=== PATIENT | male | born 1955 | race Caucasian/White ===

== ENCOUNTER 2018-07-31 09:12 | Inpatient (IN) | payer BC ==
[~2018-07-31] VITALS: Ht 175.3 cm; Wt 81.7 kg
[~2018-07-31 09:12] MED LIST: ASPI500 PO; CEPH500 PO; Percocet 5-3251 EACH PO; UNKNOWN BP MED
[2018-07-31] MEDS ORDERED: PRAZ2 PO (09:33)
[2018-07-31] MEDS ORDERED: FURO40 PO (09:33)
[2018-07-31] MEDS ORDERED: LISI20 PO ×2 (09:33→18:52)
[2018-07-31] MEDS ORDERED: AMLO10 PO (09:33)
[2018-07-31] MEDS ORDERED: BAYER BACK & B1 EACH PO (09:34)
[2018-07-31] MEDS ORDERED: ATOR40TA PO ×2 (09:34→18:51)
[2018-07-31] MEDS ORDERED: OMEPRAZOLE MAGN20 MG PO (09:34)
[2018-07-31] MEDS ORDERED: METO50ER PO (09:34)
[2018-07-31 10:27] LABS: BASOPHILS ABSOLUTE AUTO 0.05 K/mm3 (0.00-0.23); BASOPHILS PERCENT AUTO 1 % (0-2); EOSINOPHILS ABSOLUTE AUTO 0.12 K/mm3 (0.00-0.68); EOSINOPHILS PERCENT AUTO 1 % (0-6); Hematocrit 48.4 % (37.0-53.0); Hemoglobin 15.8 g/dL (13.5-17.5); IMMATURE GRAN ABSOLUTE AUTO 0.04 K/mm3 (0.00-0.10); IMMATURE GRAN PERCENT AUTO 0 % (0-1); LYMPHOCYTES ABSOLUTE AUTO 1.84 K/mm3 (0.84-5.20); LYMPHOCYTES PERCENT AUTO 20 % (21-46); MONOCYTES ABSOLUTE AUTO 0.69 K/mm3 (0.16-1.47); MONOCYTES PERCENT AUTO 7 % (4-13); Mean Corpuscular HGB 30.3 pg (26.0-34.0); Mean Corpuscular HGB Conc 32.6 g/dL (31.5-36.5); Mean Corpuscular Volume 93 fL (80-100); NEUTROPHILS ABSOLUTE AUTO 6.54 K/mm3 (1.96-9.15); NEUTROPHILS PERCENT AUTO 71 % (41-73); Platelet Count 225 K/mm3 (150-400); RDW Coefficient Variation 13.8 % (11.7-14.2); RDW Standard Deviation 47.1 fL (35.1-46.3); Red Blood Cell Count 5.21 M/mm3 (4.30-5.90); White Blood Cell Count 9.28 K/mm3 (4.00-11.30)
[2018-07-31 10:53] LABS: Alanine Aminotransfer (ALT/SGP 33 U/L (12-78); Albumin, Blood 3.5 g/dL (3.4-5.0); Albumin/Globulin Ratio 1.1 (0.8-1.8); Alk Phos 108 U/L (50-136); Anion Gap 7 mmol/L (6-16); Aspartate Aminotrans (AST/SGOT 42 U/L (12-37); Blood Urea Nitrogen 18 mg/dL (8-24); Bun/Creatinine Ratio 16.2 (12.0-20.0); CO2, Blood 27 mmol/L (21-32); Calcium, Blood 8.6 mg/dL (8.5-10.1); Chloride, Blood 108 mmol/L (98-108); Creatinine, Blood 1.11 mg/dL (0.60-1.20); Globulin, Blood 3.3 g/dL (2.2-4.0); Glomerular Filtration Rate >60 (60-); Glucose, Blood 79 mg/dL (70-99); Potassium, Blood 3.6 mmol/L (3.5-5.5); Sodium, Blood 142 mmol/L (136-145); Total Protein, Blood 6.8 g/dL (6.4-8.2)
[2018-07-31 11:00] LABS: Troponin I 0.036 ng/mL (0.000-0.040)
[2018-07-31 11:54] LABS: Source, Urine Clean Catch
[2018-07-31 11:58] LABS: Bilirubin, Urine Neg (Neg); Blood, Urine Neg (Neg); Glucose Qualitative, Urine Neg (Neg); Ketones, Urine 1+ (Neg); Leukocyte Esterase, Urine Neg (Neg); Nitrite, Urine Neg (Neg); Protein, Urine 2+ (Neg); Specific Gravity, Urine 1.025 (1.003-1.022); Urobilinogen, Urine 1+ (Normal)
[2018-07-31 12:13] LABS: Appearance, Urine Clear (Clear); Color, Urine Yellow (P-Yellow)
[2018-07-31 12:15] LABS: Bacteria Few /hpf; Mucus Light (0-Heavy); Red Blood Cells, Urine 0-2 /hpf (0-2); Squamous Epithelial Cells Rare /hpf (Few); White Blood Cells, Urine 0-2 /hpf (0-5)
[2018-07-31 17:41] LABS: International Normalized Ratio 1.03; Prothrombin Time Results 10.9 Sec (9.7-11.5)
[2018-07-31] MEDS ORDERED: METO50 PO (18:52)
[2018-07-31] MEDS ORDERED: Furosemide40 MG PO (18:53)
[2018-07-31] MEDS ORDERED: PRAZ5 PO (18:55)
[2018-07-31 19:57] LABS: U Amphetamine Screen Not Detected; U Barbituate Screen Not Detected; U Benzodiazapine Screen Not Detected; U Buprenorphine Screen Not Detected; U Cannabinoids Screen DETECTED; U Cocaine Screen Not Detected; U Methadone Screen Not Detected; U Methamphetamine Screen Not Detected; U Opiates Screen Not Detected; U Oxycodone Screen Not Detected; U Phencyclidine Screen Not Detected; U Propoxyphene Screen Not Detected
[2018-08-01 06:08] LABS: Hematocrit 46.7 % (37.0-53.0); Hemoglobin 15.1 g/dL (13.5-17.5); Mean Corpuscular HGB 30.6 pg (26.0-34.0); Mean Corpuscular HGB Conc 32.3 g/dL (31.5-36.5); Mean Corpuscular Volume 95 fL (80-100); Mean Platelet Volume 9.8 fL (9.1-12.4); Platelet Count 229 K/mm3 (150-400); RDW Standard Deviation 48.8 fL (35.1-46.3); Red Blood Cell Count 4.93 M/mm3 (4.30-5.90); White Blood Cell Count 8.86 K/mm3 (4.00-11.30)
--- NOTE | 2018-08-01 07:29 | NUR ---
ADMIT NOTE- CALLED ED AND RECIEVED REPORT FROM NIGHT RN. PT HAS HTN, PER REPORT THIS IS PERMISSIVE HTN UP TO SBP 220. AWAITING PT ARRIVAL ON THE FLOOR FOR FURTHER ASESSMENT.
[2018-08-01 13:06] LABS: Adenovirus Not Detected (NOT DETECT); Bordetella pertussis Not Detected (NOT DETECT); Chlamydophila pneumoniae Not Detected (NOT DETECT); Coronavirus 229E Not Detected (NOT DETECT); Coronavirus HKU1 Not Detected (NOT DETECT); Coronavirus NL63 Not Detected (NOT DETECT); Coronavirus OC43 Not Detected (NOT DETECT); Human Metapneumovirus Not Detected (NOT DETECT); Human Rhinovirus/Enterovirus Not Detected (NOT DETECT); Influenza A Not Detected (NOT DETECT); Influenza A/2009-H1 Not Detected (NOT DETECT); Influenza A/H1 Not Detected (NOT DETECT); Influenza A/H3 Not Detected (NOT DETECT); Influenza B Not Detected (NOT DETECT); Mycoplasma pneumoniae Not Detected (NOT DETECT); Parainfluenza Virus 1 Not Detected (NOT DETECT); Parainfluenza Virus 2 Not Detected (NOT DETECT); Parainfluenza Virus 3 Not Detected (NOT DETECT); Parainfluenza Virus 4 Not Detected (NOT DETECT); Respiratory Syncytial Virus Not Detected (NOT DETECT)
--- NOTE | 2018-08-01 20:12 | NUR ---
SHIFT SUMMARY- PT ADMITTED THROUGH THE ED. NO C/O PAIN T/O THE SHIFT, PT CONFUSED FROM TIME TO TIME. BEDSIDE REPORT COMPLETE WITH NIGHT RN VALERIE, PT SLEPT THROUGH REPORT. PT HOME CPAP IS IN THE BAG BESIDE HIS BED, CALLED DAY SHIFT RT, CPAP NOT SET UP YET. CALLED NIGHT RT TO COME SET IT UP.
--- NOTE | 2018-08-02 04:56 | NUR ---
SHIFT SUMMARY PT SLEPT FAIR, CPAP AND BI-OX ON T/O NIGHT. PT C/O HEAD THROBBING THIS AM, PAIN MEDICATION GIVEN AND PT RESTING. NO ACUTE CHANGES NOTED DURING THE NIGHT, WILL CONTINUE TO MONITOR.
[2018-08-02 05:03] LABS: BASOPHILS ABSOLUTE AUTO 0.04 K/mm3 (0.00-0.23); BASOPHILS PERCENT AUTO 0 % (0-2); EOSINOPHILS ABSOLUTE AUTO 0.15 K/mm3 (0.00-0.68); EOSINOPHILS PERCENT AUTO 2 % (0-6); Hematocrit 49.4 % (37.0-53.0); Hemoglobin 15.9 g/dL (13.5-17.5); IMMATURE GRAN ABSOLUTE AUTO 0.03 K/mm3 (0.00-0.10); IMMATURE GRAN PERCENT AUTO 0 % (0-1); LYMPHOCYTES ABSOLUTE AUTO 2.07 K/mm3 (0.84-5.20); LYMPHOCYTES PERCENT AUTO 23 % (21-46); MONOCYTES ABSOLUTE AUTO 0.61 K/mm3 (0.16-1.47); MONOCYTES PERCENT AUTO 7 % (4-13); Mean Corpuscular HGB 30.1 pg (26.0-34.0); Mean Corpuscular HGB Conc 32.2 g/dL (31.5-36.5); Mean Corpuscular Volume 93 fL (80-100); NEUTROPHILS PERCENT AUTO 67 % (41-73); Platelet Count 232 K/mm3 (150-400); RDW Coefficient Variation 13.5 % (11.7-14.2); RDW Standard Deviation 46.4 fL (35.1-46.3); Red Blood Cell Count 5.29 M/mm3 (4.30-5.90)
[2018-08-02 05:39] LABS: Albumin, Blood 3.2 g/dL (3.4-5.0); Anion Gap 5 mmol/L (6-16); Blood Urea Nitrogen 13 mg/dL (8-24); Bun/Creatinine Ratio 13.5 (12.0-20.0); CO2, Blood 29 mmol/L (21-32); Calcium, Blood 8.5 mg/dL (8.5-10.1); Chloride, Blood 104 mmol/L (98-108); Creatinine, Blood 0.96 mg/dL (0.60-1.20); Glomerular Filtration Rate >60 (60-); Glucose, Blood 98 mg/dL (70-99); Phosphorus, Blood 2.5 mg/dL (2.5-4.9); Sodium, Blood 138 mmol/L (136-145)
--- NOTE | 2018-08-02 11:20 | NUR ---
HE HAS BEEN WEARING HIS CPAP ALL MORNING. HE USES NASAL PRONGS. HE EATS AND DRINKS WELL. PAS ON BILATERALLY. BP HIGH. PO AND IV BP MEDS HAVE BEEN GIVEN WITH SOME EFFECTIVENESS. ROUNDED, AWARE OF THE HIGH BP'S.NO COMPLAINTS. HE HAS ONE VISITOR IN THE ROOM AT THIS TIME.
--- NOTE | 2018-08-02 18:04 | NUR ---
HE HAS WANTED TO SLEEP ALL DAY BUT HAS TAKEN 1 LONG WALK IN THE [place] WITH HIS DAUGHTER WHEN STRONGLY ENCOURAGED. HIS DAUGHTERS HAVE ALSO BEEN TRYING TO TALK HIM INTO A SHOWER. HE HAS REFUSED SO FAR TODAY. EVERYTHING IS READY IN THE BATHROOM IF HE CHANGES HIS MIND. TELE WAS DC'D TODAY. MULTIPLE BP MEDICATIONS GIVEN, INCLUDING AN ADDITIONAL METOPROLOL AND 2 DOSES OF PRN HYDRALAZINE. MODERATE IMPROVEMENT BUT STILL VERY HYPERTENSIVE. NO CP, DIZZINESS OR OTHER COMPLAINTS EXCEPT FOR A H/A THAT HAS NOT BEEN COMPLETELY RELIEVED BY ANTIHYPERTENSIVES OR NARCOTIC. HE IS SITTING ON THE SIDE OF THE BED NOW EATING DINNER.
--- NOTE | 2018-08-03 05:10 | NUR ---
SHIFT SUMMARY PT SHOWERED AT BEGINNING OF SHIFT, STATES HE FEELS BETTER. PT SLEPT FAIR DURING NIGHT. MEDICATED FOR H/A DURING THE NIGHT. NO ACUTE CHANGES NOTED, WILL CONTINUE TO MONITOR.
--- NOTE | 2018-08-03 05:41 | NUR ---
PT GIVEN 10 MG IV APRESOLINE ELEVATED B/P 163/102 THIS AM. WILL MONITOR
[2018-08-03] MEDS ORDERED: METO100ER PO (13:45)
[2018-08-03] MEDS ORDERED: PRAZ5 PO (13:46)
[2018-08-03] MEDS ORDERED: ASPI81CH PO (13:47)
--- NOTE | 2018-08-03 16:41 | NUR ---
HE DISCHARGED HOME WITH HIS DAUGHTER AT 1432 WITH BELONGINGS AND INSTRUCTIONS. HE LIKES TO SLEEP A LOT BUT AWAKENS EASILY AND IS INDEPENDENTLY MOBILE. THEY WILL DISCUSS BLOOD THINNERS WITH HIS PCP. HE HAD NO COMPLAINTS BUT ADMITED TO A SLIGHT H/A AND LOW BACK PAIN. HE UNDERSTANDS 2 OF HIS ANTIHYPERTENSIVES ARE INCREASED DUE TO BP STILL BEING ABOVE OPTIMAL.
--- NOTE | 2018-08-03 17:06 | NUR ---
LAVERNE SANTOYO HAS CALLED ME BACK. THEY SAY THE OFFICE WILL F/U ON THE HH ORDER TOMORROW. SOME CHART NOTES WERE FAXED TO THE OFFICE.
== END 2018-08-03 14:53 | disposition home or self-care (01) | DRG 65 ==
LOC: ER 09:12 → PCU 17:23 → MEDS 17:23 → ERHOLD 22:02 → MEDS 08-01 07:55 → ENPENDDIS 08-03 14:21 → MEDS 08-03 14:53
PROVIDERS: Internal Medicine; Nurse Practitioner Acute Care; Physician Assistant; ADMIT Internal Medicine
DX: I63.511 Cerebral infarction due to unspecified occlusion or stenosis of right middle cerebral artery (principal); I50.22 Chronic systolic (congestive) heart failure; I13.0 Hypertensive heart and chronic kidney disease with heart failure and stage 1 through stage 4 chronic kidney disease, or unspecified chronic kidney disease; I25.10 Atherosclerotic heart disease of native coronary artery without angina pectoris; Z95.1 Presence of aortocoronary bypass graft; Z79.82 Long term (current) use of aspirin; I48.91 Unspecified atrial fibrillation; N18.9 Chronic kidney disease, unspecified; E11.22 Type 2 diabetes mellitus with diabetic chronic kidney disease
CPT/HCPCS: 36415; 70450; 70496; 70498; 70551; 73060; 80053; 80069; 81001; 82607; 83735; 83880; 84484; 85025; 85027; 85610; 87486; 87581; 87633; 87798; 92610; 93005; 93010; 93880; 94762; 96374-59; 96375-59; 97162; 97165; 97530; 99285-25; J0360; J1170; J2405; J7030; Q9967

== ENCOUNTER 2018-08-09 10:55 | Emergency (ER) | payer BC ==
[~2018-08-09] VITALS: Ht 177.8 cm; Wt 127.0 kg
[~2018-08-09 10:55] MED LIST changes: +AMLO10 PO; +ASPI81CH PO; +ATOR40TA PO; +BAYER BACK & B1 EACH PO; +FURO40 PO; +Furosemide40 MG PO; +LISI20 PO; +METO100ER PO; +METO50 PO; +METO50ER PO; +OMEPRAZOLE MAGN20 MG PO; +PRAZ2 PO; +PRAZ5 PO
[2018-08-09 11:35] LABS: BASOPHILS ABSOLUTE AUTO 0.08 K/mm3 (0.00-0.23); BASOPHILS PERCENT AUTO 1 % (0-2); EOSINOPHILS ABSOLUTE AUTO 0.15 K/mm3 (0.00-0.68); EOSINOPHILS PERCENT AUTO 2 % (0-6); Hematocrit 52.5 % (37.0-53.0); Hemoglobin 17.2 g/dL (13.5-17.5); IMMATURE GRAN ABSOLUTE AUTO 0.08 K/mm3 (0.00-0.10); IMMATURE GRAN PERCENT AUTO 1 % (0-1); LYMPHOCYTES ABSOLUTE AUTO 2.15 K/mm3 (0.84-5.20); LYMPHOCYTES PERCENT AUTO 22 % (21-46); MONOCYTES ABSOLUTE AUTO 0.78 K/mm3 (0.16-1.47); MONOCYTES PERCENT AUTO 8 % (4-13); Mean Corpuscular HGB 30.3 pg (26.0-34.0); Mean Corpuscular HGB Conc 32.8 g/dL (31.5-36.5); Mean Corpuscular Volume 93 fL (80-100); NEUTROPHILS ABSOLUTE AUTO 6.38 K/mm3 (1.96-9.15); NEUTROPHILS PERCENT AUTO 66 % (41-73); RDW Coefficient Variation 13.4 % (11.7-14.2); RDW Standard Deviation 45.5 fL (35.1-46.3); Red Blood Cell Count 5.67 M/mm3 (4.30-5.90); White Blood Cell Count 9.62 K/mm3 (4.00-11.30)
[2018-08-09 11:36] LABS: Mean Platelet Volume 10.1 fL (9.1-12.4); Platelet Count 215 K/mm3 (150-400)
[2018-08-09 11:48] LABS: International Normalized Ratio 1.05; Prothrombin Time Results 11.1 Sec (9.7-11.5)
[2018-08-09 11:55] LABS: Alanine Aminotransfer (ALT/SGP 33 U/L (12-78); Albumin, Blood 3.5 g/dL (3.4-5.0); Alk Phos 106 U/L (50-136); Anion Gap 6 mmol/L (6-16); Aspartate Aminotrans (AST/SGOT 33 U/L (12-37); Blood Urea Nitrogen 25 mg/dL (8-24); Bun/Creatinine Ratio 21.7 (12.0-20.0); CO2, Blood 27 mmol/L (21-32); Calcium, Blood 8.9 mg/dL (8.5-10.1); Chloride, Blood 105 mmol/L (98-108); Creatinine, Blood 1.15 mg/dL (0.60-1.20); Globulin, Blood 3.6 g/dL (2.2-4.0); Glomerular Filtration Rate >60 (60-); Glucose, Blood 85 mg/dL (70-99); Potassium, Blood 4.3 mmol/L (3.5-5.5); Sodium, Blood 138 mmol/L (136-145); Total Protein, Blood 7.1 g/dL (6.4-8.2); Troponin I 0.021 ng/mL (0.000-0.040)
[2018-08-09] MEDS ORDERED: METO50 PO (12:26)
[2018-08-09] MEDS ORDERED: CLOP75 PO (13:32)
[2018-08-09] MEDS ORDERED: TOPROL XL200 MG PO (13:32)
== END 2018-08-09 13:50 | disposition home or self-care (01) ==
LOC: ER 10:55
PROVIDERS: Emergency Medicine
DX: G45.9 Transient cerebral ischemic attack, unspecified (principal); I10 Essential (primary) hypertension; Z87.891 Personal history of nicotine dependence; Z79.899 Other long term (current) drug therapy; Z79.82 Long term (current) use of aspirin
CPT/HCPCS: 36415; 70450; 70496; 70498; 80053; 82947; 84484; 85025; 85610; 85730; 93005; 93010; 99284-25; Q9967

== ENCOUNTER 2019-04-01 06:43 | Day surgery (SDC) | payer OTHER ==
[~2019-04-01] VITALS: Ht 172.7 cm; Wt 111.2 kg
[~2019-04-01 06:43] MED LIST changes: +BACL10 PO; +CLOP75 PO; +HYDPAM50 PO; +Hydrochlorothia25 MG PO; +MAGNESIUM OXID500 MG PO; +POTA10T PO; +SENNA LAXATIVE8.6 MG PO; +SERT100 PO; +THERA1 EACH PO; +TOPROL XL200 MG PO; +TRAZ150T57 PO; +VITAMIN B122500 MCG PO; +VITAMIN D350 MCG PO; +XARELTO20 MG PO
--- NOTE | 2019-04-01 08:11 | NUR ---
[facility]TO [facility] ADMISSION STARTED.
--- NOTE | 2019-04-01 08:40 | NUR ---
Ambulatory in Day Surgery. Surgical site prepped with 2% Chlorhexidine cloth wipe. History, Chart, Medications and Allergies reviewed before start of procedure.Lungs clear T/O to Auscultation. Patient confirms NPO status and agrees with scheduled surgery. Pre-Op teaching done. Pt verbalizes understanding. Patient States Post-Procedure ride home has been arranged. Patient reports completing Chlorhexadine shower X2 prior to admission to hospital.
--- NOTE | 2019-04-01 10:29 | NUR ---
PT TO STEP. DENIES ANY COMPLAINTS OF PAIN. DRESSING TO ABD D/I. DENIES NAUSEA.
--- NOTE | 2019-04-01 10:50 | NUR ---
PT TOLERATING PO. CONTINUES TO BE PAIN FREE.
--- NOTE | 2019-04-01 11:02 | NUR ---
PT HAD RIDE ARRANGED BUT NOT A MEDICAL RIDE. SPOKE WITH PT GIFTY AND SHE APPOROVED A VOUCHER FOR COST. RIDE SET UP WITH [facility]. PT INFORMED. NO CHANGE IN DRESSING. STILL DENIES PAIN. REPORT TO NATALIYA GARNICA.
--- NOTE | 2019-04-01 11:26 | NUR ---
Patient up to Ambulate STAND BY ASSIST. Gait steady AND SLOW. Discharge instructions reviewed with patient. Patient verbalizes understanding. Copy given to patient to take home. [facility]
--- NOTE | 2019-04-02 15:43 | NUR ---
04/02/19 1543 [address] [place] VERIFICATION, AUDITS.
== END 2019-04-01 11:24 | disposition home or self-care (01) ==
LOC: ORSCMMR 06:43 → ORD 08:30 → ORSCMMR 11:24
PROVIDERS: Surgery
PROC: 0WUF0JZ Supplement Abdominal Wall with Synthetic Substitute, Open Approach (ICD-10-PCS; principal; 2019-04-01 08:30)
DX: K42.0 Umbilical hernia with obstruction, without gangrene (principal); I10 Essential (primary) hypertension; I48.91 Unspecified atrial fibrillation; Z79.01 Long term (current) use of anticoagulants; I25.10 Atherosclerotic heart disease of native coronary artery without angina pectoris; G47.33 Obstructive sleep apnea (adult) (pediatric); Z86.73 Personal history of transient ischemic attack (TIA), and cerebral infarction without residual deficits; Z79.899 Other long term (current) drug therapy
CPT/HCPCS: C1781; J0690; J1100; J1885; J2250; J2405; J2704; J2710; J3010; J7120